=== PATIENT | female | born 1945 | race Caucasian/White ===

== ENCOUNTER 2022-08-31 11:14 | Outpatient (CLI) | payer MEDICARE, BC | END 2022-08-31 11:15 | disposition home or self-care (01) | LOC: CSHMAMMO 11:14 | PROVIDERS: ATTEND Internal Medicine | DX: Z12.31 Encounter for screening mammogram for malignant neoplasm of breast (principal) | CPT/HCPCS: 77063; 77067 ==

== ENCOUNTER 2025-07-10 12:04 | Emergency (ER) | payer MEDICARE, BC | END 2025-07-10 13:48 | disposition home or self-care (01) | LOC: CSHERS 12:04 | DX: M54.50 Low back pain, unspecified (principal); M79.18 Myalgia, other site; I10 Essential (primary) hypertension; W01.0XXA Fall on same level from slipping, tripping and stumbling without subsequent striking against object, initial encounter | CPT/HCPCS: 72170; 99284 ==